=== PATIENT | male | born 1955 | race Caucasian/White ===

== ENCOUNTER 2022-06-12 09:08 | Emergency (ER) | payer MEDICARE, SELFPAY ==
[2022-06-12] VITALS (8 sets, daily range): BP systolic 142–169; BP diastolic 79–91; PULSE 77–88; RESP 15–18; TEMP 36.4; O2SAT 93–98; BMI 36.2
--- NOTE | 2022-06-12 09:12 | W.ED.WEAKNES ---
HPI - Weakness General: Chief complaint: Weakness Stated complaint: WEAKNESS Time Seen by Provider: 06/12/22 09:11 History of Present Illness: Mr. Holloway is a 66-year-old gentleman with history of hypertension, obesity, diabetes on oral agents, CABG presenting to the emergency department for generalized weakness. He reports onset of symptoms when he awoke this morning. Reports being unable to walk or even put on his clothes. Denies focality. Denies known associated infectious symptoms. Intensity symptoms is moderate to severe. Course has persisted. No other specific changes in health, exacerbating, or alleviating factors identified. Per supplemental outside records patient was admitted to [facility] from 06/05 through 06/11. Patient has a history of chronic atrial fibrillation, chronic systolic heart failure, CKD, CAD, dementia, hypertension, diabetes, elevated LFTs, cardiomyopathy. Patient presented to [facility] ER as a return visit for shortness of breath. He endorsed being kicked out of his house by his and was staying in a prison house with cats that he is allergic to and he has not been able to get his medications. He had optimization of baseline medical conditions and social work for disposition. Discharge plan was for the [facility]. Onset (ago): hour(s) Duration: constant Location: generalized Severity: severe Quality: other Relieving factors: none Exacerbating factors: movement and exertion Associated symptoms: Reports no associated symptoms Review of Systems General: Reports: 10 or more systems reviewed and unremarkable except in HPI and below PFSH ED PFSH: Medical History (Updated 06/22/22 @ 00:02 by JESSICA Blair) DM2 (diabetes mellitus, type 2) Hypertension Surgical History (Updated 06/12/22 @ 09:33 by Cordell Nicole MD) History of coronary artery bypass graft Physical Exam Const: COMMON NORMALS: alert GENERAL APPEARANCE: cooperative and well developed HENMT: COMMON NORMALS: normocephalic and atraumatic HEAD & SCALP: normocephalic and atraumatic Eye: COMMON NORMALS: conjunctivae normal CONJUNCTIVA: Yes conjunctivae normal SCLERA: sclerae normal Neck/C-Spine: COMMON NORMALS: supple GENERAL: Yes trachea midline Resp: COMMON NORMALS: clear to auscultation bilaterally EFFORT & INSPECTION: Yes able to speak in complete sentences AUSCULTATION: clear to auscultation bilaterally Cardio: COMMON NORMALS: regular rate and regular rhythm RATE: regular rate RHYTHM: regular rhythm GI: COMMON NORMALS: Soft to palpation PALPATION: Yes Soft to palpation and No Tenderness to palpation present (GI) Extremity: GENERAL: Yes normal exam except as noted and No edema Neuro: COMMON NORMALS: moves all extremities SENSORIUM/ORIENTATION: Yes alert and No Orientation impaired Psych: COMMON NORMALS: mental status grossly normal and Normal thought process present THOUGHT PROCESS: Normal thought process present Course Vital Signs: Vital signs: Vital Signs Temperature 97.6 F 06/12/22 09:10 Pulse Rate 88 06/12/22 16:47 Respiratory Rate 16 06/12/22 16:47 Blood Pressure 142/91 06/12/22 15:48 Pulse Oximetry 98 06/12/22 16:47 Oxygen Delivery Me thod Room Air 06/12/22 15:48 MDM - Weakness Medical Decision Making 67-year-old gentleman presenting to the emerged department for generalized weakness. Exam as above. He is a poor historian. There are no focal neurologic deficits and he is nontoxic in appearance. EKG demonstrates sinus rhythm with first-degree AV block and interventricular conduction delay, right axis deviation, nonspecific ST segment abnormalities. No STEMI. Labs demonstrate no leukocytosis, hemoglobin is mildly low without evidence of hemorrhage on exam, normal platelet count. Metabolic panel with elevated creatinine. Negative range 2-hour delta troponin. BNP elevated. Elevated TSH and free T4. Urinalysis with no evidence of urinary tract infection. Digoxin level is therapeutic. Chest x-ray with cardiomegaly and perhaps mild evidence of edema. No lobar consolidation or pneumothorax. Upon obtaining outside records laboratory findings were overall similar to baseline. On reassessment patient feels improved and the exact etiology of his symptoms is unclear though does not appear to be exacerbated or need inpatient management of this time. The results of ED evaluation were discussed with the patient including prescriptions and/or symptomatic cares (if applicable) including appropriate and responsible use, followup plan, and return precautions. The patient verbalized understanding and felt safe for discharge. Medical Records I reviewed the patient's medical records. Lab Data I reviewed the patient's lab results. 06/12/22 09:35 06/12/22 09:35 Radiology Impressions Chest X-Ray 06/12/22 09:25 IMPRESSION: 1. Cardiomegaly. 2. There is blunting of the left costophrenic angle, likely indicating a small pleural effusion versus chronic pleural thickening. 3. No acute focal pulmonary opacities are detected. Laboratory Results WBC 6.3 10^3/uL (4.0-10.0) 06/12/22 09:35 RBC 3.65 10^6/uL (4.1-5.3) L 06/12/22 09:35 Hgb 9.5 g/dL (11.7-16.6) L 06/12/22 09:35 Hct 32.1 % (42.0-52.0) L 06/12/22 09:35 MCV 87.9 fl (80-94) 06/12/22 09:35 MCH 26.0 pg (28.0-34.0) L 06/12/22 09:35 MCHC 29.6 g/dL (30.0-36.0) L 06/12/22 09:35 RDW 17.9 % (12.1-15.1) H 06/12/22 09:35 Plt Count 234 10^3/cmm (130-400) 06/12/22 09:35 MPV 9.3 fL (7.4-10.4) 06/12/22 09:35 Neut % (Auto) 78.0 % 06/12/22 09:35 Lymph % (Auto) 13.2 % 06/12/22 09:35 Motley % (Auto) 6.4 % 06/12/22 09:35 Eos % (Auto) 1.3 % 06/12/22 09:35 Baso % (Auto) 0.8 % 06/12/22 09:35 Neut # (Auto) 4.89 10^3/uL (1.8-7.7) 06/12/22 09:35 Lymph # (Auto) 0.8 10^3/uL (0.8-4.8) 06/12/22 09:35 Motley # (Auto) 0.4 10^3/uL (0.2-0.9) 06/12/22 09:35 Eos # (Auto) 0.1 10^3/uL (0.0-0.8) 06/12/22 09:35 Baso # (Auto) 0.1 10^3/uL (0.0-0.1) 06/12/22 09:35 Nucleated RBC % (auto) 0 % 06/12/22 09:35 Nucleated RBCs # 0.0 /100WBC 06/12/22 09:35 Sodium 139 mmol/L (136-145) 06/12/22 09:35 Potassium 4.8 mmol/L (3.5-5.1) 06/12/22 09:35 Chloride 103 mmol/L (98-107) 06/12/22 09:35 Carbon Dioxide 25 mmol/L (22-29) 06/12/22 09:35 Anion Gap 15.8 (5-19) 06/12/22 09:35 BUN 25 mg/dL (8-23) H 06/12/22 09:35 Creatinine 2.5 mg/dL (0.7-1.2) H 06/12/22 09:35 GFR Calculation 25.9 mL/min (90-130) L 06/12/22 09:35 Glucose 97 mg/dL (65-115) 06/12/22 09:35 POC Glucose 94 mg/dL (70-110) 06/12/22 09:34 Calculated Osmolality 292 mOsm/kg (285-295) 06/12/22 09:35 Calcium 8.9 mg/dL (8.5-10.5) 06/12/22 09:35 Total Bilirubin 1.6 mg/dL (0.15-1.2) H 06/12/22 09:35 AST 22 U/L (0-40) 06/12/22 09:35 ALT 26 U/L (0-41) 06/12/22 09:35 Alkaline Phosphatase 57 U/L (40-130) 06/12/22 09:35 Troponin T Baseline 71 ng/L (0-15) H 06/12/22 09:35 Troponin T 120 Minute 72.50 ng/L (0-15) H 06/12/22 11:30 Delta Troponin T 1.50 ABS# (0-10) 06/12/22 11:30 Troponin T Hi Sens 6Hr 63.13 ng/L (0-15) H 06/12/22 16:20 Troponin T Hi Sens 6Hr Delta -7.87 ng/L (0-12) L 06/12/22 16:20 C-Reactive Protein 3.0 mg/L (0.0-4.9) 06/12/22 09:35 NT-Pro-B Natriuret Pep 7175 pg/mL (0-125) H 06/12/22 09:35 Total Protein 6.5 g/dL (6.6-8.7) L 06/12/22 09:35 Albumin 3.7 g/dL (3.5-5.2) 06/12/22 09:35 Globulin 2.8 g/dL (1.3-4.6) 06/12/22 09:35 Procalcitonin 0.16 ng/mL (0-0.5) 06/12/22 09:35 TSH 4.55 uIU/mL (0.27-4.20) H 06/12/22 09:35 Free T4 1.95 ng/dL (0.82-1.77) H 06/12/22 09:35 Urine Color Yellow (Yellow) 06/12/22 10:08 Urine Appearance Clear (CLEAR) 06/12/22 10:08 Urine pH 6.5 (5-7) 06/12/22 10:08 Ur Specific [place] 1.010 (1.005-1.030) 06/12/22 10:08 Urine Protein Neg (Negative) 06/12/22 10:08 Urine Glucose (UA) Norm (Normal) 06/12/22 10:08 Urine Ketones Negative (Negative) 06/12/22 10:08 Urine Blood Neg (Negative) 06/12/22 10:08 Urine Nitrate Negative (Negative) 06/12/22 10:08 Urine Bilirubin Neg (Negative) 06/12/22 10:08 Urine Urobilinogen Neg mg/dL (Negative) 06/12/22 10:08 Ur Leukocyte Esterase Negative (Negative) 06/12/22 10:08 Digoxin 1.1 ng/mL (0.6-1.2) 06/12/22 11:32 Discharge Plan Discharge Patient Disposition: Home Clinical Impression: Generalized weakness, Anemia, CKD (chronic kidney disease), Elevated TSH, Elevated serum free T4 level Condition: Stable Prescriptions: No Action tramadol 50 mg tablet 50 mg PO TID PRN (Reason: pain (scale score 7-10)) Qty: 15 0RF hydralazine 10 mg Tablet 10 mg PO TID carvedilol 6.25 mg Tablet 6.25 mg PO BID Rx Instructions: must administer with a meal/food Chlorpheniramine Allergy 4 mg Tablet 4 mg PO DAILY atorvastatin 20 mg Tablet 20 mg PO QPM amiodarone 200 mg Tablet 200 mg PO BID donepezil 10 mg Tablet 10 mg PO DAILY isosorbide mononitrate 30 mg Tablet Extended Release 24 Hr 30 mg PO BID Aspir-81 81 mg Tablet,Delayed Release (Dr/Ec) 81 mg PO DAILY glimepiride 2 mg Tablet 2 mg PO BID potassium chloride 20 mEq Tablet,Er Particles/Crystals 20 meq PO BID pioglitazone 30 mg Tablet 30 mg PO DAILY Flonase 50 mcg/actuation [place],Suspension 1 spray INTRANASAL DAILY Rx Instructions: administer into each nostril quetiapine 50 mg Tablet Extended Release 24 Hr 50 mg PO QPM Eliquis 5 mg Tablet 5 mg PO BID Discharge Orders: Discharge ED (Routine); Ordered 06/12/22 Ordered By: Cordell Nicole Discharge Diet: Cardiac Discharge Activity: Resume usual activity Patient Instructions: Chronic Kidney Disease Diet (DC), Weakness (ED), Low-Sodium Diet (ED) Activity Restrictions/Additional Instructions: Thank you for visiting the emergency department. You were seen and evaluated for generalized weakness. The exact cause of your symptoms is unclear though does not appear to need hospitalization at this time. Please follow-up with your primary care provider. Establish with a primary care provider if you do not currently have one. Return to the emergency department for anything that you are concerned about and feel needs emergency department evaluation. Coding Level of Care Code ED Marble Chip Terrazzo Worker for Juan Manuel Claros
--- NOTE | 2022-06-12 09:25 | XRR_ITS ---
PROCEDURE INFORMATION: Exam: XR Chest Exam date and time: 06/12/2022 9:56 AM Age: 66 years old Clinical indication: Cough; Additional info: Cough, generalized weakness TECHNIQUE: Imaging protocol: Radiologic exam of the chest. Views: 1 view. Total images: 1248 COMPARISON: No relevant prior studies available. FINDINGS: Lungs: No acute focal pulmonary opacities are detected. Pleural spaces: There is blunting of the left costophrenic angle, likely indicating a small pleural effusion versus chronic pleural thickening. Heart/Mediastinum: Prior coronary artery bypass grafting. Cardiomegaly. Bones/joints: Unremarkable. Soft tissues: Soft tissue anchor in the right humeral head. XR/XR chest 1V portable [id number] IMPRESSION: 1. Cardiomegaly. 2. There is blunting of the left costophrenic angle, likely indicating a small pleural effusion versus chronic pleural thickening. 3. No acute focal pulmonary opacities are detected.
--- NOTE | 2022-06-12 09:25 | ECG_ITS ---
[facility] Test Date: 2022-06-12 Pat Name: Vj Holloway Department: Room: Gender: Male Protective Signal Operator: : 1955 Requested By: Cordell Nicole Order Number: [id number] Marce MD: Jeromy Vázquez M.D. Measurements Intervals [place] Rate: 85 P: 66 NH: 273 QRS: 146 QRSD: 146 T: -24 QT: 478 QTc: 572 Interpretive Statements Possible SINUS RHYTHM WITH FIRST DEGREE AV BLOCK INTRAVENTRICULAR CONDUCTION DELAY [130+ ms QRS DURATION] No previous ECG available for comparison Electronically Signed On 06-13-2022 0:11:00 CDT by Jeromy Vázquez M.D. [id number]
[2022-06-12 09:41] LABS: Glucose Point of Care 94 mg/dL (70-110)
[2022-06-12 09:44] LABS: Basophils # 0.1 10^3/uL (0.0-0.1); Basophils % 0.8 %; Eosinophils # 0.1 10^3/uL (0.0-0.8); Eosinophils % 1.3 %; Hematocrit 32.1 % (42.0-52.0); Hemoglobin 9.5 g/dL (11.7-16.6); Lymphocytes # 0.8 10^3/uL (0.8-4.8); Lymphocytes % 13.2 %; Mean Corpuscular HGB Conc 29.6 g/dL (30.0-36.0); Mean Corpuscular Volume 87.9 fl (80-94); Mean Platelet Volume 9.3 fL (7.4-10.4); Monocytes # 0.4 10^3/uL (0.2-0.9); Monocytes % 6.4 %; Neutrophils # 4.89 10^3/uL (1.8-7.7); Nucleated Red Blood Cells % 0 %; Platelet Count 234 10^3/cmm (130-400); Red Blood Count 3.65 10^6/uL (4.1-5.3); Red Cell Distribution Width 17.9 % (12.1-15.1); White Blood Count 6.3 10^3/uL (4.0-10.0)
[2022-06-12 10:09] LABS: Troponin(5th) Baseline 71 ng/L (0-15)
[2022-06-12 10:16] LABS: Add Urine Microscopic? NO; Charge for UA Resulting for Rev
[2022-06-12 10:17] LABS: NT Pro B Type Natriuretic Pept 7175 pg/mL (0-125); Procalcitonin 0.16 ng/mL (0-0.5); Thyroid Stimulating Hormone 4.55 uIU/mL (0.27-4.20)
[2022-06-12 10:23] LABS: Bilirubin Urine Neg (Negative); Blood Urine Neg (Negative); Glucose Urine UA Norm (Normal); Ketones Urine Negative (Negative); Leukocyte Esterase Urine Negative (Negative); Nitrate Urine Negative (Negative); Protein Urine Neg (Negative); Urine Appearance Clear (CLEAR); Urine Color Yellow (Yellow); Urobilinogen Urine Neg (Negative); pH Urine 6.5 (5-7)
[2022-06-12 10:28] LABS: Alanine Aminotransferase 26 U/L (0-41); Albumin Level 3.7 g/dL (3.5-5.2); Alkaline Phosphatase 57 U/L (40-130); Anion Gap 15.8 (5-19); Aspartate Amino Transferase 22 U/L (0-40); Blood Urea Nitrogen 25 mg/dL (8-23); Calcium 8.9 mg/dL (8.5-10.5); Carbon Dioxide 25 mmol/L (22-29); Chloride 103 mmol/L (98-107); Globulin 2.8 g/dL (1.3-4.6); Glomerular Filtration Rate 25.9 mL/min (90-130); Glucose 97 mg/dL (65-115); Osmolality Calculated 292 mOsm/kg (285-295); Potassium 4.8 mmol/L (3.5-5.1); Sodium 139 mmol/L (136-145); Total Bilirubin 1.6 mg/dL (0.15-1.2); Total Protein 6.5 g/dL (6.6-8.7)
[2022-06-12 11:06] LABS: Free T4 Free Thyroxine 1.95 ng/dL (0.82-1.77)
--- NOTE | 2022-06-12 11:33 | ECG_ITS ---
[facility] Test Date: 2022-06-12 Pat Name: Vj Holloway Department: Room: Gender: Male Real Estate Appraiser: : 1955 Requested By: Cordell Nicole Order Number: [id number] Marce MD: Jeromy Vázquez M.D. Measurements Intervals [place] Rate: 85 P: 64 [place]: 266 QRS: 146 QRSD: 148 T: -37 QT: 488 QTc: 582 Interpretive Statements SINUS RHYTHM WITH FIRST DEGREE AV BLOCK INTRAVENTRICULAR CONDUCTION DELAY [130+ ms QRS DURATION] Compared to ECG 06/12/2022 09:32:25 No significant changes Electronically Signed On 06-13-2022 0:20:58 CDT by Jeromy Vázquez M.D. [id number]
[2022-06-12 12:51] LABS: Digoxin 1.1 ng/mL (0.6-1.2)
[2022-06-12 17:15] LABS: Troponin 5 6HR 63.13 ng/L (0-15)
[2022-06-12 17:22] LABS: Troponin 5 6HR Delta -7.87 ng/L (0-12)
== END 2022-06-12 16:47 | disposition home or self-care (01) ==
PROVIDERS: Emergency Provider Emergency Medicine; PCP Internal Medicine
DX: R53.1 Weakness (principal); D64.9 Anemia, unspecified; R94.6 Abnormal results of thyroid function studies; E11.22 Type 2 diabetes mellitus with diabetic chronic kidney disease; I12.9 Hypertensive chronic kidney disease with stage 1 through stage 4 chronic kidney disease, or unspecified chronic kidney disease; N18.9 Chronic kidney disease, unspecified; Z95.1 Presence of aortocoronary bypass graft; Z79.01 Long term (current) use of anticoagulants; Z79.82 Long term (current) use of aspirin; Z79.84 Long term (current) use of oral hypoglycemic drugs; R79.89 Other specified abnormal findings of blood chemistry
CPT/HCPCS: 36415; 36416; 71045; 80053; 80162; 81003; 82962; 83880; 84145; 84439; 84443; 84484; 85025; 86140; 93005; 99285

== ENCOUNTER 2022-06-14 19:07 | Emergency (ER) | payer MEDICARE, SELFPAY ==
--- NOTE | 2022-06-14 19:33 | W.ED.ABDPA2 ---
HPI - Abdominal Pain General: Stated Complaint: kidney pain Time Seen by Provider: 06/14/22 19:33 PFSH ED PFSH: Medical History (Updated 06/12/22 @ 13:11 by Cordell Nicole MD) DM2 (diabetes mellitus, type 2) Hypertension Surgical History (Updated 06/12/22 @ 09:33 by Cordell Nicole MD) History of coronary artery bypass graft Discharge Plan Discharge Condition: Stable Prescriptions: No Action hydralazine 10 mg Tablet 10 mg PO TID carvedilol 6.25 mg Tablet 6.25 mg PO BID Rx Instructions: must administer with a meal/food Chlorpheniramine Allergy 4 mg Tablet 4 mg PO DAILY atorvastatin 20 mg Tablet 20 mg PO QPM amiodarone 200 mg Tablet 200 mg PO BID donepezil 10 mg Tablet 10 mg PO DAILY isosorbide mononitrate 30 mg Tablet Extended Release 24 Hr 30 mg PO BID Aspir-81 81 mg Tablet,Delayed Release (Dr/Ec) 81 mg PO DAILY glimepiride 2 mg Tablet 2 mg PO BID potassium chloride 20 mEq Tablet,Er Particles/Crystals 20 meq PO BID pioglitazone 30 mg Tablet 30 mg PO DAILY Flonase 50 mcg/actuation [place],Suspension 1 spray INTRANASAL DAILY Rx Instructions: administer into each nostril quetiapine 50 mg Tablet Extended Release 24 Hr 50 mg PO QPM Eliquis 5 mg Tablet 5 mg PO BID Referrals: Lisa Decker MD [Primary Care Provider] - Coding Level of Care Code ED Cheese Packer for Juan Manuel Claros
[2022-06-14 19:35] VITALS: PULSE 88; RESP 16; TEMP 36.4; O2SAT 88; BMI 33.5
--- NOTE | 2022-06-14 22:07 | W.ED.BACK ---
HPI - Back Pain/Injury General: Chief Complaint: Back Pain/Injury Stated Complaint: kidney pain Time Seen by Provider: 06/14/22 19:33 History of Present Illness: 66-year-old male patient comes in today with complaints of back pain. Patient reports that his pain started yesterday and has progressed. Patient has significant cardiac history with a coronary bypass, chronic kidney disease, anemia, diabetes mellitus type 2, and hypertension. Patient appears chronically ill. Patient appears in mild to moderate pain. Pain is increased with movement. Review of the record from prior ER visit on the fifth noted that patient at that time was seen for weakness and had recently been displaced from his residence that he shared with his estranged spouse. Patient at this time is residing in a senior living house. Labs showed Associated symptoms: Reports chills; Deny fever(s), nausea or vomiting Review of Systems Const: Reports: chills; Denies: fever(s) Eyes: Denies: change in vision ENMT: Denies: throat pain Card: Denies: chest pain Resp: Denies: dyspnea GI: Denies: nausea or vomiting : Reports: difficulty urinating Musc: Reports: back pain Skin/Breast: Reports: other (Senile purpura) Neuro: Reports: weakness in extremities Psych: Denies: anxiety Cristian/Lymph: Reports: easy bruising PFSH ED PFSH: Medical History (Updated 06/14/22 @ 23:22 by TUAN Singleton) DM2 (diabetes mellitus, type 2) Hypertension Surgical History (Updated 06/12/22 @ 09:33 by Cordell Nicole MD) History of coronary artery bypass graft Physical Exam Const: COMMON NORMALS: alert HENMT: COMMON NORMALS: normocephalic HEAD & SCALP: normocephalic Neck/C-Spine: COMMON NORMALS: full ROM Chest: COMMONS NORMALS: normal inspection of the chest Resp: COMMON NORMALS: normal respiratory effort and clear to auscultation bilaterally AUSCULTATION: clear to auscultation bilaterally Cardio: COMMON NORMALS: regular rate and regular rhythm RATE: regular rate RHYTHM: regular rhythm GI: COMMON NORMALS: Soft to palpation PALPATION: Yes Soft to palpation and Yes Tenderness to palpation present (GI) Details: LLQ : COMMON NORMALS: Yes no CVA tenderness BLADDER/KIDNEY EXAM: Yes no CVA tenderness Back/Pelvis: COMMON NORMALS: no CVA tenderness THORACIC SPINE/UPPER BACK: Yes paraspinal muscle tenderness LUMBAR SPINE/LOWER BACK: Yes paraspinal muscle tenderness Extremity: NARRATIVE EXTREMITY EXAM: Bilateral pedal edema, weightbearing, decreased range of motion of the spine Neuro: SENSORIUM/ORIENTATION: Yes alert Skin: NARRATIVE SKIN EXAM: Senile purpura Course Vital Signs: Vital signs: Vital Signs Temperature 97.6 F 06/14/22 19:35 Pulse Rate 88 06/14/22 19:35 Respiratory Rate 16 06/14/22 19:35 Pulse Oximetry 88 L 06/14/22 19:35 Oxygen Delivery Me thod 06/14/22 19:35 MDM - Back Pain/Injury Medical Decision Making 66-year-old male patient comes in today with complaints of mid to low back pain. Patient appears nontoxic but chronically ill. Lungs are decreased in the bases. Heart rates regular. Abdomen soft with some tenderness in the left lower quadrant. Bowel sounds are present. Tenderness is noted in the bilateral paraspinous muscles of the mid to low back. Differential diagnosis includes but not limited to intervertebral disc disease, facet arthritis, muscle strain. Urinalysis was unremarkable. X-rays of the thoracic and lumbar spine noted significant degenerative changes with facet arthritis. Patient had relief of discomfort with 1 hydrocodone 7-1/2 mg. We will continue patient on tramadol 50 mg 3 times a day as needed for his pain for the next 5 days. Patient was recommended to follow-up with primary care for further evaluation and treatment. Patient stated understanding and agreed to plan Labs Laboratory Results Urine Color Dark yellow (Yellow) 06/14/22 22:15 Urine Appearance Clear (CLEAR) 06/14/22 22:15 Urine pH 7 (5-7) 06/14/22 22:15 Ur Specific [place] 1.005 (1.005-1.030) 06/14/22 22:15 Urine Protein Trace (Negative) 06/14/22 22:15 Urine Glucose (UA) Norm (Normal) 06/14/22 22:15 Urine Ketones 1+ (Negative) H 06/14/22 22:15 Urine Blood Neg (Negative) 06/14/22 22:15 Urine Nitrate Negative (Negative) 06/14/22 22:15 Urine Bilirubin Neg (Negative) 06/14/22 22:15 Urine Urobilinogen 4 mg/dL (Negative) H 06/14/22 22:15 Ur Leukocyte Esterase Negative (Negative) 06/14/22 22:15 Urine RBC None /hpf (0-2) 06/14/22 22:15 Urine WBC None /hpf (0-5) 06/14/22 22:15 Ur Squamous Epith Cells 0-4 /hpf (0-5) H 06/14/22 22:15 Amorphous Sediment Not Reportable 06/14/22 22:15 Urine Bacteria 1+ /hpf (NONE) H 06/14/22 22:15 Discharge Plan Discharge Patient Disposition: Home Clinical Impression: 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 Condition: Stable Prescriptions: New tramadol 50 mg tablet 50 mg PO TID PRN (Reason: pain (scale score 7-10)) Qty: 15 0RF No Action hydralazine 10 mg Tablet 10 mg PO TID carvedilol 6.25 mg Tablet 6.25 mg PO BID Rx Instructions: must administer with a meal/food Chlorpheniramine Allergy 4 mg Tablet 4 mg PO DAILY atorvastatin 20 mg Tablet 20 mg PO QPM amiodarone 200 mg Tablet 200 mg PO BID donepezil 10 mg Tablet 10 mg PO DAILY isosorbide mononitrate 30 mg Tablet Extended Release 24 Hr 30 mg PO BID Aspir-81 81 mg Tablet,Delayed Release (Dr/Ec) 81 mg PO DAILY glimepiride 2 mg Tablet 2 mg PO BID potassium chloride 20 mEq Tablet,Er Particles/Crystals 20 meq PO BID pioglitazone 30 mg Tablet 30 mg PO DAILY Flonase 50 mcg/actuation [place],Suspension 1 spray INTRANASAL DAILY Rx Instructions: administer into each nostril quetiapine 50 mg Tablet Extended Release 24 Hr 50 mg PO QPM Eliquis 5 mg Tablet 5 mg PO BID Discharge Orders: Discharge ED (Routine); Ordered 06/14/22 Ordered By: Joe Baldwin Referrals: Lisa Decker MD [Primary Care Provider] - Discharge Diet: Usual diet Discharge Activity: Increase activity as tolerated Patient Instructions: Opioid Safety, Pain Management Activity Restrictions/Additional Instructions: Maintain activity as tolerated. Take medication as directed for pain. Follow-up with primary care in 3 to 5 days for recheck. Return to ED for new concerns. Coding Level of Care Code ED Sustainable Landscape Architect for Juan Manuel Claros
[2022-06-14 22:35] LABS: Add Urine Microscopic? YES; Bilirubin Urine Neg (Negative); Blood Urine Neg (Negative); Glucose Urine UA Norm (Normal); Ketones Urine 1+ (Negative); Leukocyte Esterase Urine Negative (Negative); Nitrate Urine Negative (Negative); Protein Urine Trace (Negative); Specific Gravity, Urine 1.005 (1.005-1.030); Urine Appearance Clear (CLEAR); Urine Color Dark Yellow (Yellow); Urobilinogen Urine 4 mg/dL (Negative); pH Urine 7 (5-7)
[2022-06-14] MEDS: HYDROcodone-acetaminophen 7.5-325 mg Tablet 1 TAB PO (22:38)
--- NOTE | 2022-06-14 22:38 | XRR_ITS ---
PROCEDURE INFORMATION: Exam: XR Thoracic Spine Exam date and time: 06/14/2022 10:53 PM Age: 66 years old Clinical indication: Pain in thoracic spine; Additional info: Back pain TECHNIQUE: Imaging protocol: Radiologic exam of the thoracic spine. Views: 3 views. COMPARISON: CR XR chest 1V portable [id number] 06/14/2022 10:49 PM FINDINGS: Bones/joints: Sternotomy wires. Mild leftward curvature of the upper thoracic spine. The vertebral body stature is maintained. No compression fracture or subluxation. Degenerative endplate changes in the mid and lower thoracic levels. 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 Soft tissues: Unremarkable. XR/XR thoracic spine 3V* [id number] IMPRESSION: No acute findings.
--- NOTE | 2022-06-14 22:38 | XRR_ITS ---
PROCEDURE INFORMATION: Exam: XR Lumbosacral Spine Exam date and time: 06/14/2022 10:59 PM Age: 66 years old Clinical indication: Low back pain TECHNIQUE: Imaging protocol: Radiologic exam of the lumbosacral spine. Views: 2 or 3 views. COMPARISON: CR (CHEST, ) 06/14/2022 10:53 PM FINDINGS: Bones/joints: The vertebral body alignment and stature is maintained. No fracture or subluxation. The disc spaces are maintained. Large anterior spurs and osteophytes throughout the lumbar spine. The facets are intact with degenerative changes. Soft tissues: Unremarkable. XR/XR lumbar spine 2-3V* [id number] IMPRESSION: No acute findings.
--- NOTE | 2022-06-14 22:38 | XRR_ITS ---
PROCEDURE INFORMATION: Exam: XR Chest Exam date and time: 06/14/2022 10:49 PM Age: 66 years old Clinical indication: Pain; Other: Weakness; Prior surgery; Additional info: Weakness, back pain TECHNIQUE: Imaging protocol: Radiologic exam of the chest. Views: 1 view. COMPARISON: CR XR chest 1V portable [id number] 06/12/2022 9:56 AM FINDINGS: Lungs: Atelectasis in the lingula. The right lung is clear. Pleural spaces: Small left pleural effusion, unchanged. Heart/Mediastinum: Cardiomegaly. Bones/joints: Median sternotomy changes. XR/XR chest 1V portable [id number] IMPRESSION: 1. Stable cardiomegaly. 2. Stable small left pleural effusion.
[2022-06-14 22:45] LABS: Bacteria Urine 1+ /hpf; Squamous Epithelial Cell Urine 0-4 /hpf (0-5)
[2022-06-14 23:29] VITALS: PULSE 88; RESP 16; TEMP 36.4; O2SAT 88
== END 2022-06-14 23:34 | disposition home or self-care (01) ==
PROVIDERS: Emergency Medicine; Emergency Provider Nurse Practitioner Family; PCP Internal Medicine
DX: M47.815 Spondylosis without myelopathy or radiculopathy, thoracolumbar region (principal); Z79.01 Long term (current) use of anticoagulants; Z79.82 Long term (current) use of aspirin; Z79.84 Long term (current) use of oral hypoglycemic drugs; E11.9 Type 2 diabetes mellitus without complications; I10 Essential (primary) hypertension
CPT/HCPCS: 71045; 72072; 72100; 81001; 99284